=== PATIENT | male | born 1950 | race Caucasian/White ===

== ENCOUNTER 2019-07-13 13:56 | Emergency (ER) | payer OTHER ==
--- NOTE | 2019-07-13 15:38 | EDM.PDOC ---
ED HPI GENERAL MEDICAL PROBLEM - General Chief Complaint: Lower Extremity Injury/Pain Stated Complaint: LEFT THIGH PAIN Time Seen by Provider: 07/13/19 14:50 Source of Information: Reports: Patient History Limitations: Reports: No Limitations - History of Present Illness INITIAL COMMENTS - FREE TEXT/NARRATIVE: 68-year-old male with left thigh pain for the last 3 days, only with weightbearing. It started hurting 3 days ago and got much worse today. No history of trauma or falls, no fevers or chills, no rashes bruising or other inciting event. Onset: Gradual Duration: Day(s): (His leg has been hurting for 3 days) Location: Reports: Lower Extremity, Left Quality: Reports: Ache, Sharp Improves with: Reports: Rest Worsens with: Reports: Other (Weightbearing) Associated Symptoms: Reports: No Other Symptoms Left Leg Pain Score (Numeric/FACES): 8 - Related Data Allergies Allergy/AdvReac Type Severity Reaction Status Date / Time No Known Allergies Allergy Verified 07/13/19 15:09 Home Meds: Home Meds NK [No Known Home Meds] 07/13/19 [History] Past Medical History Musculoskeletal History: Reports: Back Pain, Chronic, Fracture Other Musculoskeletal History: back fractures - Past Surgical History GI Surgical History: Reports: Appendectomy Musculoskeletal Surgical History: Reports: Hip Replacement Other Musculoskeletal Surgeries/Procedures:: left Social & Family History - Tobacco Use Smoking Status *Q: Current Every Day Smoker Years of Tobacco use: 12 Packs/Tins Daily: 0.5 - Caffeine Use Caffeine Use: Reports: Coffee - Recreational Drug Use Recreational Drug Use: No Review of Systems - Review of Systems Review Of Systems: See Below Constitutional: Denies: Fever Respiratory: Reports: No Symptoms Cardiovascular: Reports: No Symptoms GI/Abdominal: Reports: No Symptoms Genitourinary: Reports: No Symptoms Skin: Reports: No Symptoms. Denies: Rash Neurological: Denies: Paresthesia ED EXAM, GENERAL - Physical Exam Exam: See Below Free Text/Narrative:: While the patient is lying supine on the bed, he has no symptoms. Exam Limited By: No Limitations General Appearance: Alert, No Apparent Distress Respiratory/Chest: No Respiratory Distress Extremities: Other (The lower extremities are symmetric, no edema. I can internally and externally rotate the left hip without pain, extend the knee and palpate the quadriceps and hamstrings of the left leg without eliciting pain.) Neurological: Alert, Oriented Psychiatric: Normal Affect, Normal Mood Skin Exam: Warm, Dry, No Rash (There is no rash over the painful area) Course - Vital Signs Last Recorded V/S: Last Vital Signs Temp 96.5 F L 07/13/19 15:08 Pulse 87 07/13/19 15:08 Resp 16 07/13/19 15:08 BP 130/81 07/13/19 15:08 Pulse Ox 97 07/13/19 15:08 - Orders/Labs/Meds Orders: Active Orders 24 hr Category Date Time Status Femur Min 2V Lt [CR] Stat Exams 07/13/19 15:10 Taken - Re-Assessments/Exams Free Text/Narrative Re-Assessment/Exam: 07/13/19 17:07 A femur x-ray was obtained that showed a total hip repair of the hip but no other findings that would explain his pain. I asked him to continue with Aleve and given 10 hydrocodone for extra pain control and to try to increase activity as tolerated. If he develops a rash, swelling, or fever he will return otherwise recheck next week if not improving satisfactorily. Departure - Departure Time of Disposition: 15:57 Disposition: Home, Self-Care 01 Clinical Impression: Pain in left thigh - Discharge Information Instructions: Pain Without a Known Cause Referrals: PCP,None [Primary Care Provider] - Forms: ED Department Discharge Care Plan Goals: Continue with Aleve and add stronger pain medication if needed. Try to increase activity through the weekend and recheck next week if not improving satisfactorily. Return sooner if worsening such as rash, fever or swelling of the painful area. Sepsis Event Note - Evaluation Sepsis Screening Result: No Definite Risk - Focused Exam Vital Signs: Vital Signs Temp Pulse Resp BP Pulse Ox 07/13/19 15:08 96.5 F L 87 16 130/81 97 07/13/19 14:55 96.5 F L 87 16 130/81 97 Date Exam was Performed: 07/13/19 Time Exam was Performed: 17:04 - My Orders Last 24 Hours: My Active Orders 07/13/19 15:10 Femur Min 2V Lt [CR] Stat - Assessment/Plan Last 24 Hours: My Active Orders 07/13/19 15:10 Femur Min 2V Lt [CR] Stat
--- NOTE | 2019-07-14 10:12 | CR ---
Femur Min 2V Lt CLINICAL HISTORY: Left thigh pain FINDINGS: Patient has a total left hip arthroplasty. Components appear well seated. There is a irregular linear radiopacity along the distal medial thigh posteriorly in the region of the medial biceps femoris. This could sublingually be on the skin or clothing. There is a 1 x 2 cm ill-defined sclerotic lesion in the distal femoral diaphysis posteriorly this is along the inner posterior cortex. Impression: Left hip arthroplasty appears intact. Irregular linear radiopacity in the region of the medial biceps femoris. This is likely on the skin or clothing Ill-defined 1 x 2 cm sclerotic subcortical focus in the posterior distal femoral diaphysis
== END 2019-07-13 15:57 | disposition home or self-care (01) ==
LOC: JP.ED 13:56
DX: M79.652 Pain in left thigh (principal); F17.210 Nicotine dependence, cigarettes, uncomplicated
CPT/HCPCS: 73552-26-LT; 73552-LT; 99283-25

== ENCOUNTER 2022-10-30 21:00 | Emergency (ER) | payer OTHER, MEDICARE ==
[2022-10-30 22:28] LABS: APPEARANCE,URINE CLEAR (CLEAR); BILIRUBIN,URINE NEGATIVE (NEGATIVE); COLOR,URINE YELLOW (YELLOW); GLUCOSE,URINE 500 mg/dL (NEGATIVE); KETONES,URINE 15 mg/dL (NEGATIVE); LEUKOCYTE ESTERASE,URINE NEGATIVE (NEGATIVE); NITRITE,URINE NEGATIVE (NEGATIVE); OCCULT BLOOD,URINE NEGATIVE (NEGATIVE); PROTEIN,URINE NEGATIVE (NEGATIVE); UROBILINOGEN,URINE 0.2 EU/dL (0.2-1.0)
[2022-10-30 22:31] LABS: BASOPHILS ABSOLUTE AUTO 0.04 K/uL (0.00-0.10); BASOPHILS PERCENT AUTO 0.2 % (0.1-1.3); EOSINOPHILS PERCENT AUTO 0.1 % (0.0-5.4); HEMATOCRIT 28.5 % (38.4-49.7); HEMOGLOBIN 10.1 g/dL (12.9-16.9); IMMATURE GRAN ABSOLUTE AUTO 0.11 K/uL (0.00-0.23); IMMATURE GRAN PERCENT AUTO 0.6 % (0.0-0.7); LYMPHOCYTES ABSOLUTE AUTO 0.38 K/uL (0.8-3.3); LYMPHOCYTES PERCENT AUTO 2.1 % (11.4-47.7); MEAN CORPUSCULAR HEMOGLOBIN 33.4 pg (31.6-35.5); MEAN CORPUSCULAR HGB CONC 35.4 g/dL (31.6-35.5); MEAN CORPUSCULAR VOLUME 94.4 fL (81.4-99.0); MONOCYTES PERCENT AUTO 1.7 % (3.3-12.6); NEUTROPHILS ABSOLUTE AUTO 17.32 K/uL (1.0-7.6); NEUTROPHILS PERCENT AUTO 95.3 % (40.0-78.1); PLATELET COUNT,PLT 466 K/uL (130-375); RED BLOOD CELL COUNT 3.02 M/uL (4.14-5.76); WHITE BLOOD CELL COUNT,WBC 18.2 K/uL (3.2-11.0)
[2022-10-30 22:41] LABS: AMORPHOUS SEDIMENT,URINE NOT SEEN; BACTERIA,URINE FEW; EPITHELIAL CELLS,URINE FEW; MUCUS,URINE FEW; RBC,URINE 0-5 (0-5); WBC,URINE 0-5 (0-5)
[2022-10-30 22:41] LABS: CALCIUM 9.1 mg/dL (8.5-10.1); CREATININE 0.9 mg/dL (0.8-1.3); EOSINOPHILS ABSOLUTE AUTO 0.01 K/uL (0.00-0.40); EST CRCL DRUG DOSING (CG) 78.43 mL/min; POTASSIUM,K 3.6 mmol/L (3.6-5.2)
[2022-10-30 22:43] LABS: ANION GAP 13.6 mmol/L (5.0-14.0)
[2022-10-30] MEDS ORDERED: Sodium Chloride 0.9% 1,000 ML IV ONE (23:25)
[2022-10-30] MEDS ORDERED: Iopamidol 612 MG/ML 100 ML Bottle IV STA (23:29)
[2022-10-30] MEDS ORDERED: Sodium Chloride 0.9% 10 ML Syringe FLUSH STA (23:29)
[2022-10-30] MEDS ORDERED: Sodium Chloride 0.9% 50 ML IV STA (23:29)
[2022-10-30] MEDS ORDERED: fentaNYL 50 MCG/ML SDV IVPUSH ONE (23:44)
[2022-10-30] MEDS ORDERED: Naloxone 0.4 MG/ML SDV IVPUSH PRN (23:44)
[2022-10-30] MEDS ORDERED: Cefepime 2 GM in Sodium Chloride 0.9% 50 ML IV ONE (23:49)
[2022-10-31] MEDS ORDERED: Sodium Chloride 0.9% 1,000 ML IV ONE (03:01)
[2022-10-31] MEDS ORDERED: fentaNYL 50 MCG/ML SDV IM ONE (03:39)
[2022-10-31] MEDS ORDERED: fentaNYL 50 MCG/ML SDV IVPUSH ONE ×2 (03:46→07:30)
== END 2022-10-31 07:39 ==
LOC: JP.ED 21:00
DX: A41.9 Sepsis, unspecified organism (principal); E11.9 Type 2 diabetes mellitus without complications; F17.210 Nicotine dependence, cigarettes, uncomplicated; Z79.84 Long term (current) use of oral hypoglycemic drugs; Z88.5 Allergy status to narcotic agent; Z91.018 Allergy to other foods; Z20.822 Contact with and (suspected) exposure to COVID-19
CPT/HCPCS: 36415; 71260; 74177; 80048; 81001; 83605; 85025; 86140; 87040; 87077; 87186; 87635; 96361; 96365; 96367; 96375; 96376; 99284; J0692; J3010; J3370; J3490; J7030; J7050; Q9967; U0002

== ENCOUNTER 2024-06-09 07:24 | Day surgery (SDC) | payer MEDICARE, OTHER ==
[2024-06-09] MEDS: Lactated Ringers 1,000 ML IV SCH (08:06)
[2024-06-09 08:18] LABS: HEMATOCRIT 36.1 % (38.4-49.7); HEMOGLOBIN 13.2 g/dL (12.9-16.9); MEAN CORPUSCULAR HEMOGLOBIN 34.4 pg (31.6-35.5); MEAN CORPUSCULAR HGB CONC 36.6 g/dL (31.6-35.5); RED BLOOD CELL COUNT 3.84 M/uL (4.14-5.76); WHITE BLOOD CELL COUNT,WBC 6.5 K/uL (3.2-11.0)
[2024-06-09] MEDS ORDERED: Propofol 200 MG/20 ML SDV ONE (08:26)
[2024-06-09] MEDS ORDERED: Neostigmine Methylsulfate 10 MG/10 ML MDV ONE (08:26)
[2024-06-09] MEDS ORDERED: Dexamethasone 4 MG/ML SDV ONE (08:26)
[2024-06-09] MEDS ORDERED: Glycopyrrolate 0.2 MG/ML 5 ML MDV ONE (08:26)
[2024-06-09] MEDS ORDERED: Ondansetron 4 MG/2 ML SDV ONE (08:26)
[2024-06-09] MEDS ORDERED: Rocuronium 50 MG/5 ML Vial ONE (08:26)
[2024-06-09] MEDS ORDERED: Succinylcholine 200 MG/10 ML MDV ONE (08:26)
[2024-06-09] MEDS ORDERED: fentaNYL 250 MCG/5 ML SDV ONE ×2 (08:28→09:02)
[2024-06-09 08:34] LABS: CALCIUM 9.1 mg/dL (8.5-10.1); CREATININE 0.9 mg/dL (0.8-1.3); EST CRCL DRUG DOSING (CG) 75.35 mL/min
[2024-06-09] MEDS: ceFAZolin 2 GM in Premix Bag 1 BAG IV ONE (08:50)
[2024-06-09] MEDS: Bupivacaine 0.25%/EPINEPHrine 1:200,000 30 ML SDV ONE (09:15)
[2024-06-09] MEDS ORDERED: Sugammadex Sodium 200 MG/2 ML VIAL IV ONE (09:59)
[2024-06-09] MEDS: oxyCODONE 5 MG Tab PO PRN (11:27)
== END 2024-06-09 12:25 | disposition home or self-care (01) ==
LOC: JP.SDS 07:24
PROVIDERS: ATTEND Surgery
DX: K40.90 Unilateral inguinal hernia, without obstruction or gangrene, not specified as recurrent (principal); E11.9 Type 2 diabetes mellitus without complications; F17.210 Nicotine dependence, cigarettes, uncomplicated; Z79.899 Other long term (current) drug therapy
CPT/HCPCS: 00830; 36415; 49650; 80048; 85027; A9270; C1781; J0330; J0690; J1100; J1596; J2405; J2704; J2710; J3010; J7120; J3490